=== PATIENT | female | born 1975 | race Caucasian/White ===

== ENCOUNTER 2018-10-09 09:45 | Emergency (ER) | payer SELFPAY ==
[2018-10-09] MEDS ORDERED: Sodium Chloride 0.9% 1,000 ML IV ONE (09:58)
[2018-10-09 10:12] LABS: BASO % 0.3 % (0.0-2.0); EOS % 0.2 % (0.0-4.0); LYMPH # 1.5 K/uL (1.0-4.3); LYMPH % 10.5 % (20.0-40.0); MEAN CELL VOLUME 92.3 fL (81.0-99.0); MEAN CORPUSCULAR HEMOGLOBIN 31.2 pg (27.0-31.0); MEAN CORPUSCULAR HGB CONC 33.8 g/dL (33.0-37.0); MEAN PLATELET VOLUME 9.2 fL (7.2-11.7); MONO # 0.7 K/uL (0.0-0.8); NEUT # 11.9 K/uL (1.8-7.0); RBC 4.17 Mil/uL (3.80-5.20); RED CELL DISTRIBUTION WIDTH 13.2 % (11.5-14.5); WHITE BLOOD COUNT 14.1 K/uL (4.8-10.8)
[2018-10-09 10:34] LABS: ALB/GLOB RATIO 1.4 (1.0-2.1); ALBUMIN 4.5 g/dL (3.5-5.0); ALT/SGPT 16 U/L (9-52); AST/SGOT 23 U/L (14-36); BLOOD UREA NITROGEN 11 mg/dL (7-17); CALCIUM 9.6 mg/dl (8.6-10.4); GFR NON-AFRICAN AMERICAN > 60; LIPASE 70 U/L (23-300)
[2018-10-09 11:01] LABS: HCG,QUALITATIVE URINE NEGATIVE (NEGATIVE)
[2018-10-09 11:03] LABS: SQUAMOUS EPITHIAL 1 /hpf (0-5); URINE BACTERIA OCC (<OCC); URINE BILIRUBIN NEGATIVE (NEGATIVE); URINE BLOOD 3+ (NEGATIVE); URINE CLARITY Hazy (Clear); URINE COLOR Amber (YELLOW); URINE GLUCOSE (UA) NORMAL (Normal); URINE LEUKOCYTE ESTERASE NEG Leu/uL (Negative); URINE PROTEIN 2+ mg/dL (NEGATIVE); URINE UROBILINOGEN NORMAL mg/dL (0.2-1.0)
--- NOTE | 2018-10-09 11:04 | C.PDOC ---
History Of Present Illness 43 yo female with no significant pmh came into the ER for left flank pain that started this morning. She notes that last night when she urinated , she noted blood in the urine. Today, she started having severe flank pain, vomiting x 1, prompting ER visit. Denies fevers, chest pain, SOB, trauma, change in sensation, or abdominal pain. Time Seen by Provider: 10/09/18 09:56 Chief Complaint (Nursing): Back Pain History Per: Patient, Family History/Exam Limitations: no limitations Onset/Duration Of Symptoms: Hrs Current Symptoms Are (Timing): Still Present Severity: Severe Previous Symptoms: None Associated Symptoms: denies: Incontinence, New Weakness, New Numbness Past Medical History Vital Signs: Last Vital Signs Temp 98.0 F 10/09/18 09:51 Pulse 86 10/09/18 09:51 Resp 20 10/09/18 09:51 BP 122/67 10/09/18 09:51 Pulse Ox 97 10/09/18 09:51 - Medical History PMH: No Chronic Diseases Family History: States: Unknown Family Hx - Social History Hx Alcohol Use: No Hx Substance Use: No Review Of Systems Except As Marked, All Systems Reviewed And Found Negative. Gastrointestinal: Positive for: Vomiting Genitourinary: Positive for: Hematuria Musculoskeletal: Positive for: Back Pain Physical Exam - Physical Exam Appears: Non-toxic, In Acute Distress (in painful distress) Skin: Normal Color, Warm, Dry Head: Atraumatic, Normacephalic Eye(s): bilateral: Normal Inspection, EOMI Nose: Normal Oral Mucosa: Moist Neck: Normal, Normal ROM, Supple Chest: Symmetrical Cardiovascular: Rhythm Regular Respiratory: Normal Breath Sounds Gastrointestinal/Abdominal: Normal Exam, Soft, No Tenderness Back: CVA Tenderness (left) Extremity: Normal ROM Neurological/Psych: Oriented x3, Normal Speech, Normal Cognition ED Course And Treatment - Laboratory Results Result Diagrams: 10/09/18 10:05 10/09/18 10:05 Lab Results: Total Bilirubin 0.5 mg/dL (0.2-1.3) 10/09/18 10:05 AST 23 U/L (14-36) 10/09/18 10:05 ALT 16 U/L (9-52) 10/09/18 10:05 Alkaline Phosphatase 61 U/L (38-126) 03/23/19 10:05 Total Protein 7.6 g/dL (6.3-8.3) 10/09/18 10:05 Albumin 4.5 g/dL (3.5-5.0) 10/09/18 10:05 Globulin 3.1 gm/dL (2.2-3.9) 10/09/18 10:05 Albumin/Globulin Ratio 1.4 (1.0-2.1) 10/09/18 10:05 Lipase 70 U/L (23-300) 10/09/18 10:05 Urine HCG, Qual Negative (NEGATIVE) 10/09/18 10:54 Urine HCG, Qual Negative (NEGATIVE) 10/09/18 10:54 O2 Sat by Pulse Oximetry: 97 Progress Note: Pt was treated with Toradol, Morphine and Zofran. On re- evaluation, pain improved. Pending CT results. ]. On re-evaluation, symptoms improved. Tolerating PO afebrile. CAse discussed with Dr Magana who instructs rx as given and follow up in the office. PT and daughter were given the information and all questions were answered. Instructed to return to ER if symptoms persist or worsen. Case discussed with Dr Manzano, agreed upon plan and discharge. Disposition - Disposition Referrals: Fermin Solomon MD [Staff Provider] - [facility] [Outside] Disposition: HOME/ ROUTINE Disposition Time: 13:18 Condition: STABLE Additional Instructions: Follow up with your primary medical doctor or clinic in 2 days for further evaluation. Take medications as prescribed. Return to the emergency department at any time if symptoms persist or worsen. Prescriptions: Cefuroxime Axetil [Cefuroxime] 500 mg PO BID #14 tablet Naproxen [Naprosyn] 1 tab PO BID PRN #20 tab PRN Reason: Pain oxyCODONE/Acetaminophen [Percocet 5/325 mg Tab] 1 tab PO QID PRN #20 tab PRN Reason: Pain Tamsulosin [Flomax] 0.4 mg PO DAILY #10 cap Instructions: Kidney Stones (DC) Forms: [employer] (Guinean) - Clinical Impression Clinical Impression: Nephrolithiasis
--- NOTE | 2018-10-09 12:58 | CT ---
Date of service: 10/09/2018 PROCEDURE: CT Abdomen and Pelvis without intravenous contrast HISTORY: Pain COMPARISON: None. TECHNIQUE: Without contrast.. Contrast dose: 0 Radiation dose: Total exam DLP = 232.77 mGy-cm. This CT exam was performed using one or more of the following dose reduction techniques: Automated exposure control, adjustment of the mA and/or kV according to patient size, and/or use of iterative reconstruction technique. FINDINGS: LOWER THORAX: Unremarkable. LIVER: Unremarkable. No gross lesion or ductal dilatation. GALLBLADDER AND BILE DUCTS: Unremarkable. PANCREAS: Unremarkable. No gross lesion or ductal dilatation. SPLEEN: Unremarkable. ADRENALS: Unremarkable. No mass. KIDNEYS AND URETERS: 6 mm nonobstructing calculus in left renal pelvis. No hydronephrosis. No renal mass. No right renal calculus. VASCULATURE: Unremarkable. No aortic aneurysm. No aortic atherosclerotic calcification or mural plaque present. BOWEL: Unremarkable. No obstruction. No gross mural thickening. APPENDIX: Unremarkable. Normal appendix. PERITONEUM: Unremarkable. No free fluid. No free air. LYMPH NODES: Unremarkable. No enlarged lymph nodes. BLADDER: Poorly distended. Grossly unremarkable. REPRODUCTIVE: Unremarkable uterus. BONES: No acute fracture. OTHER FINDINGS: None. IMPRESSION: Nonobstructing 6 mm calculus in left renal pelvis. No additional abnormality.
[2018-10-09 13:16] VITALS: BP 100/66; PULSE 74; RESP 16; TEMP 98.6
[2018-10-09] MEDS ORDERED: cefTRIAXone IV 1 gm in Dextros 1 GM in Dextrose 5% In Water 50 ML IVPB STA (13:16)
[2018-10-09 13:23] VITALS: O2SAT 97
== END 2018-10-09 14:08 | disposition home or self-care (01) ==
LOC: C.ER 09:45
DX: N20.0 Calculus of kidney (principal)
CPT/HCPCS: 74176; 80053; 81001; 81025; 83690; 84703; 85025; 87086; 96361; 96365; 96375; 99285; J0696; J1885; J2270; J2405; J7030

== ENCOUNTER 2018-10-11 17:17 | Emergency (ER) | payer OTHER ==
[2018-10-11] MEDS ORDERED: Sodium Chloride 0.9% 1,000 ML IV ONE (19:20)
--- NOTE | 2018-10-11 19:29 | C.PDOC ---
History Of Present Illness 43-year-old female presents to the ED for evaluation of left flank pain which began 3 days ago. Patient was evaluated in this ED on 10/09 and was diagnosed with a non-obstructing kidney stone. She returns to the ED complaining of wors ening pain. Patient denies fever, chills, nausea, vomiting, or any additional medical complaints at this time. Time Seen by Provider: 10/11/18 19:12 Chief Complaint (Nursing): Female Genitourinary History Per: Patient History/Exam Limitations: no limitations Onset/Duration Of Symptoms: Days (3) Current Symptoms Are (Timing): Worse Quality Of Discomfort: "Pain" Additional History Per: Patient Past Medical History Reviewed: Historical Data, Nursing Documentation, Vital Signs Vital Signs: Last Vital Signs Temp 99.1 F 10/11/18 17:21 Pulse 83 10/11/18 17:21 Resp 18 10/11/18 17:21 BP 119/80 10/11/18 17:21 Pulse Ox 100 10/11/18 17:21 - Medical History PMH: Kidney Stones, Chronic Kidney Disease Surgical History: No Surg Hx Family History: States: Unknown Family Hx - Social History Hx Alcohol Use: No Hx Substance Use: No Review Of Systems Constitutional: Negative for: Fever, Chills Gastrointestinal: Negative for: Nausea, Vomiting Musculoskeletal: Positive for: Other (left flank pain ) Physical Exam - Physical Exam Appears: Non-toxic, No Acute Distress Skin: Normal Color, Warm, Dry Head: Atraumatic, Normacephalic Eye(s): bilateral: Normal Inspection Oral Mucosa: Moist Neck: Supple Chest: Symmetrical, No Deformity, No Tenderness Cardiovascular: Rhythm Regular, No Murmur Respiratory: Normal Breath Sounds, No Rales, No Rhonchi, No Wheezing Gastrointestinal/Abdominal: Soft, No Tenderness, No Guarding, No Rebound Back: Other (left flank tenderness ) Extremity: Normal ROM, Capillary Refill (less than 2 seconds ) Neurological/Psych: Oriented x3, Normal Speech, Normal Cognition ED Course And Treatment - Laboratory Results Result Diagrams: 10/11/18 19:51 10/11/18 19:51 O2 Sat by Pulse Oximetry: 100 (on RA) Pulse Ox Interpretation: Normal - CT Scan/US CT A/P Other Rad Studies (CT/US): Read By Radiologist, Radiology Report Reviewed CT/US Interpretation: EXAM: CT Abdomen and Pelvis without IV contrast. CLINICAL HISTORY: LEFT FLANK PAIN. TECHNIQUE: Axial computed tomography images of the abdomen and pelvis without intravenous contrast. 0.00 mGy-cm. CONTRAST: Without. COMPARISON: None provided. FINDINGS: LUNG BASES: The lung bases appear clear. No pleural effusions are seen. LIVER: Unremarkable. GALLBLADDER AND BILE DUCTS: The gallbladder appears within normal limits. No radioopaque gallstones are seen. No biliary ductal dilatation is evident. PANCREAS: Unremarkable. SPLEEN: Unremarkable. ADRENAL GLANDS: Unremarkable. KIDNEYS, URETERS, AND BLADDER: Both kidneys appear normal in size and position. A 3.0 mm obstructing calculus is seen in the left UPJ which causes associated moderate left hydronephrosis/hydroureter. The urinary bladder appeared normal in size and configuration. STOMACH AND BOWEL: Unremarkable appearance of the stomach and bowel. No evidence of bowel obstruction. No evidence suggesting enteritis or colitis. APPENDIX: No evidence of acute appendicitis on CT examination. PERITONEUM: No free fluid. No free air. LYMPH NODES: No lymphadenopathy is evident. REPRODUCTIVE: Unremarkable as visua lized. VASCULATURE: No evidence of abdominal aortic aneurysm. BONES: No aggressive appearing osseous lesion. No acute osseous pathology evident. IMPRESSION: 1. A 3.0 mm obstructing calculus is noted at the left UPJ which causes associated moderate left hydronephrosis/hydroureter. Medical Decision Making Medical Decision Making: previous ct non obstrucitng stone - will eval for obstructive uropathy Progress: Bloodwork, urinalysis, CT A/P ordered and reviewed. Toradol IVP and IV Fluids given. ct shows 3mm stone. pain resolved in er. pt prefers to go home. discussed with urology dr torres. will see pt as outpt pt already on antibiotics and flomax. additional pain meds dosed. Disposition - Disposition Referrals: Fermin Solomon MD [Staff Provider] - Disposition: HOME/ ROUTINE Disposition Time: 22:00 Condition: STABLE Prescriptions: Ibuprofen [Motrin Tab] 600 mg PO Q8 PRN #20 tab PRN Reason: Pain, Mild (1-3) oxyCODONE/Acetaminophen [Percocet 5/325 mg Tab] 1 tab PO Q6 PRN #10 tab PRN Reason: Pain, Severe (8-10) Instructions: Kidney Stones (DC) Forms: [employer] (Spanish) - Clinical Impression Clinical Impression: Kidney stone - Scribe Statement The provider has reviewed the documentation as recorded by the Scribe (Nancy Laboy) Provider Attestation: All medical record entries made by the Scribe were at my direction and personally dictated by me. I have reviewed the chart and agree that the record accurately reflects my personal performance of the history, physical exam, medical decision making, and the department course for this patient. I have also personally directed, reviewed, and agree with the discharge instructions and disposition.
[2018-10-11] MEDS ORDERED: Sodium Chloride 0.9% 1,000 ML ONE (19:39)
[2018-10-11 19:58] LABS: BASO % 0.2 % (0.0-2.0); EOS % 0.1 % (0.0-4.0); HEMOGLOBIN 12.7 g/dL (11.0-16.0); LYMPH # 1.5 K/uL (1.0-4.3); LYMPH % 11.1 % (20.0-40.0); MEAN CELL VOLUME 91.9 fL (81.0-99.0); MEAN CORPUSCULAR HEMOGLOBIN 30.5 pg (27.0-31.0); MEAN CORPUSCULAR HGB CONC 33.2 g/dL (33.0-37.0); MEAN PLATELET VOLUME 10.1 fL (7.2-11.7); MONO # 1.2 K/uL (0.0-0.8); MONO % 8.6 % (0.0-10.0); NEUT # 10.8 K/uL (1.8-7.0); RBC 4.17 Mil/uL (3.80-5.20); WHITE BLOOD COUNT 13.5 K/uL (4.8-10.8)
[2018-10-11 20:00] LABS: SQUAMOUS EPITHIAL 1 /hpf (0-5); URINE BILIRUBIN NEGATIVE (NEGATIVE); URINE BLOOD 2+ (NEGATIVE); URINE CLARITY Clear (Clear); URINE COLOR Straw (YELLOW); URINE GLUCOSE (UA) NORMAL (Normal); URINE LEUKOCYTE ESTERASE NEG Leu/uL (Negative); URINE PROTEIN NEGATIVE (NEGATIVE); URINE UROBILINOGEN NORMAL mg/dL (0.2-1.0)
[2018-10-11 20:08] LABS: PROTHROMBIN TIME 11.2 SECONDS (9.7-12.2)
[2018-10-11 20:10] LABS: ALB/GLOB RATIO 1.3 (1.0-2.1); ALBUMIN 4.5 g/dL (3.5-5.0); ALT/SGPT 17 U/L (9-52); AST/SGOT 38 U/L (14-36); BLOOD UREA NITROGEN 9 mg/dL (7-17); CALCIUM 10.1 mg/dl (8.6-10.4); GFR NON-AFRICAN AMERICAN > 60; LIPASE 35 U/L (23-300)
[2018-10-11 20:18] LABS: HCG,QUALITATIVE URINE NEGATIVE (NEGATIVE)
[2018-10-11] MEDS ORDERED: cefTRIAXone IV 1 gm in Dextros 50 ML IVPB ONE (22:01)
[2018-10-11 22:17] VITALS: BP 109/69; PULSE 84; RESP 16; TEMP 97.9
[2018-10-11 22:25] VITALS: O2SAT 100
--- NOTE | 2018-10-12 10:25 | CT ---
Date of service: 10/11/2018 PROCEDURE: CT Abdomen and Pelvis without intravenous contrast HISTORY: left flank pain ho of kidney stone COMPARISON: None. TECHNIQUE: Without contrast.. Contrast dose: None Radiation dose: Total exam DLP = <inf_radiation_dlp> mGy-cm. This CT exam was performed using one or more of the following dose reduction techniques: Automated exposure control, adjustment of the mA and/or kV according to patient size, and/or use of iterative reconstruction technique. FINDINGS: LOWER THORAX: Lungs are clear. This slight asymmetry in the appearance of the breast parenchyma right lateral breast parenchyma appears asymmetric compared to the left-however this could also could be positioning no change with the very recent 10/09/2018 study is seen. Consider correlation with mammography and breast ultrasound Could still be normal breast parenchymal variant. LIVER: Unremarkable. No gross lesion or ductal dilatation. GALLBLADDER AND BILE DUCTS: Unremarkable. PANCREAS: Unremarkable. No gross lesion or ductal dilatation. SPLEEN: Unremarkable. ADRENALS: Unremarkable. No mass. KIDNEYS AND URETERS: The previously referenced 6 mm calculus in the left renal pelvis (the extra renal pelvis has migrated distally at least 2 cm and now is in the proximal left ureter it is seen at the inferior L3 vertebral body level there is left proximal hydroureter and left proximal hydro nephrosis suggested. VASCULATURE: . No aortic aneurysm. No atherosclerotic calcification or mural plaque of the descending abdominal aorta present. BOWEL: Moderate stool retention suggested.. No obstruction. No gross mural thickening. APPENDIX: There is some high density within the right hemipelvis tubular like this is unchanged compared to the 10/09/2018 study-may relate to high density material/possible calcification within an elongated non dilated appendix. No secondary inflammatory changes of acute appendicitis suggested. PERITONEUM: There is free fluid in the [id number]-probably slightly increased since the prior exam.. No free air. LYMPH NODES: Unremarkable. No enlarged lymph nodes. BLADDER: Unremarkable. REPRODUCTIVE: Probable benign physiologic bilateral follicular cystic changes in each ovary noted.. The uterus is enlarged. Fibroid filled uterus is a consideration. No change in appearance noted. BONES: No acute fracture. Spondylosis L4 vertebral body OTHER FINDINGS: None. IMPRESSION: The prior 6 mm calculus in the left extra renal pelvis has migrated distally at least 2 cm in to the proximal left ureter. Now there is left hydro ureter and left hydronephrosis suggested. No additional left distal ureteral calculi seen. No right hydronephrosis seen. Possible high density material and/or calcifications within a non dilated elongated appendix in the right hemipelvis. No secondary inflammatory like changes associated with this apparent tubular elongated appendix noted. The preliminary interpretation provided by [facility] is correct in terms of a left hydro ureter and left hydronephrosis. This left proximal ureteral calculus is estimated to be 6 mm not 3 mm.
== END 2018-10-11 22:14 | disposition home or self-care (01) ==
LOC: C.ER 17:17
DX: N13.2 Hydronephrosis with renal and ureteral calculous obstruction (principal)
CPT/HCPCS: 74176; 80053; 81001; 83690; 84703; 85025; 85610; 85730; 96374; 99285; J1885; J7030